=== PATIENT | female | born 1955 | race Caucasian/White ===

== ENCOUNTER 2019-11-02 18:15 | Emergency (ER) | payer OTHER ==
--- NOTE | 2019-11-02 19:41 | EDM.PDOC ---
ED HPI GENERAL MEDICAL PROBLEM - General Chief Complaint: Laceration Stated Complaint: FINGERS LEFT HAND, LITTLE ON THE RIGHT CUT Time Seen by Provider: 11/02/19 19:30 Source of Information: Reports: Patient History Limitations: Reports: No Limitations - History of Present Illness INITIAL COMMENTS - FREE TEXT/NARRATIVE: This 64 yo female patient reports to the ED with injuries to her left and (3rd and 4th fingers), right hand 3rd finger and forehead. The patient reports she was lifting a concrete bench when the top came off, then she tripped on the remaining piece. The patient reports she fell during the process. The patient reports no loss of consciousness before, during or after the incident. The patient is not on any blood thinners. Onset: Today Onset Date: 11/02/19 Onset Time: 18:00 Duration: Constant Location: Reports: Head, Upper Extremity, Left, Upper Extremity, Right Quality: Reports: Ache, Dull Severity: Moderate Improves with: Reports: None Worsens with: Reports: None Context: Reports: Other Associated Symptoms: Reports: No Other Symptoms Left Finger-Middle Pain Score (Numeric/FACES): 5 Right Finger-Ring Pain Score (Numeric/FACES): 5 - Related Data Allergies Allergy/AdvReac Type Severity Reaction Status Date / Time No Known Allergies Allergy Verified 11/02/19 19:13 Home Meds: Home Meds Escitalopram [Lexapro] 10 mg PO DAILY 11/02/19 [History] Levothyroxine [Synthroid] 88 mcg PO ACBREAKFAST 11/02/19 [History] atorvaSTATin Calcium [Lipitor] 10 mg PO DAILY 11/02/19 [History] lisinopriL [Lisinopril] 20 mg PO DAILY 11/02/19 [History] predniSONE [Prednisone] 10 mg PO DAILY 11/02/19 [History] Past Medical History Cardiovascular History: Reports: High Cholesterol, Hypertension Other Endocrine/Metabolic History: Adrenal insuffiency - Past Surgical History Other Oncologic Surgeries/Procedures: stage 3 melanoma -2014 Social & Family History - Tobacco Use Smoking Status *Q: Never Smoker - Caffeine Use Caffeine Use: Reports: Soda - Alcohol Use Date of Last Drink: 11/02/19 - Recreational Drug Use Recreational Drug Use: No ED ROS GENERAL - Review of Systems Review Of Systems: Comprehensive ROS is negative, except as noted in HPI. ED EXAM, SKIN/RASH Exam: See Below Exam Limited By: No Limitations General Appearance: Alert, WD/WN, Mild Distress Eye Exam: Bilateral Eye: EOMI, Normal Inspection, PERRL Ears: Normal External Exam, Normal Canal, Hearing Grossly Normal, Normal TMs Nose: Normal Inspection, Normal Mucosa, No Blood Throat/Mouth: Normal Inspection, Normal Lips, Normal Teeth, Normal Gums, Normal Oropharynx, Normal Voice, No Airway Compromise Head: Atraumatic, Normocephalic Neck: Normal Inspection, Supple, Non-Tender, Full Range of Motion Respiratory/Chest: No Respiratory Distress, Lungs Clear, Normal Breath Sounds, No Accessory Muscle Use, Chest Non-Tender Cardiovascular: Normal Peripheral Pulses, Regular Rate, Rhythm, No Edema, No Gallop, No JVD, No Murmur, No Rub GI/Abdominal: Normal Bowel Sounds, Soft, Non-Tender, No Organomegaly, No Distention, No Abnormal Bruit, No Mass (Female) Exam: Deferred Rectal (Female) Exam: Deferred Extremities: Arm Pain (left and right hand pain) Neurological: Alert, Oriented, CN II-XII Intact, Normal Cognition, Normal Gait, Normal Reflexes, No Motor/Sensory Deficits Psychiatric: Normal Affect, Normal Mood Skin: Wound/Incision (right 3rd finger, left 3rd and 4th fingers) Location, Skin: Head (forehead contusion), Upper Extremity, Right, Upper Extremity, Left Characteristics: Linear Associated features: Warmth, Tenderness Lymphatic: No Adenopathy ED SKIN PROCEDURES - Laceration/Wound Repair Left Digit - 4th (Ring) Appearance: Subcutaneous Distal NVT: Neuro & Vascular Intact, No Tendon Injury Anesthetic Type: Local Local Anesthesia - Lidocaine (Xylocaine): 1% Plain Local Anesthetic Volume: 4cc Skin Prep: Chlorhexidine (Hibiciens), Saline Exploration/Debridement/Repair: Wound Explored, In a Bloodless Field, Foreign Material Removed Closed with: Sutures Lac/Wound length In cm: 2.5 Suture Size: 4-0 # of Sutures: 9 Suture Type: Prolene, Interrupted, Simple Sterile Dressing Applied: Nurse Tetanus Status Addressed: Yes Complications: Yes Complication Description: Underlying Tuft fracture Left Distal Digit - 3rd (Middle) Appearance: Subcutaneous Distal NVT: Neuro & Vascular Intact Anesthetic Type: Local Local Anesthesia - Lidocaine (Xylocaine): 1% Plain Skin Prep: Chlorhexidine (Hibiciens), Saline Exploration/Debridement/Repair: Wound Explored, Foreign Material Removed Closed with: Sutures Lac/Wound length In cm: 2.5 Suture Size: 4-0 # of Sutures: 10 Suture Type: Prolene, Interrupted, Simple Drain Placement: No Sterile Dressing Applied: Nurse Tetanus Status Addressed: Yes Complications: Yes Complication Description: Underlying Tuft fracture Course - Vital Signs Last Recorded V/S: Last Vital Signs Temp 36.4 C 11/02/19 18:58 Pulse 70 11/02/19 18:58 Resp 19 11/02/19 18:58 BP 144/85 H 11/02/19 18:58 Pulse Ox 99 11/02/19 18:58 - Orders/Labs/Meds Meds: Medications Discontinued Medications Generic Name Dose Route Start Last Admin Trade Name Elijah PRN Reason Stop Dose Admin Bacitracin 1 dose 11/02/19 20:26 11/02/19 20:35 Bacitracin Oint 1 Gm TOP 11/02/19 20:27 1 dose ONETIME ONE Administration Lidocaine HCl 30 ml 11/02/19 20:26 11/02/19 20:35 Xylocaine-Mpf 1% INJECT 11/02/19 20:27 30 ml ONETIME ONE Administration Departure - Departure Time of Disposition: 21:45 Disposition: Home, Self-Care 01 Condition: Fair Clinical Impression: Closed fracture of tuft of distal phalanx of finger Laceration of finger of left hand without damage to nail Qualifiers: Encounter type: initial encounter Finger: middle finger Foreign body presence: with foreign body Qualified Code(s): S61.223A - Laceration with foreign body of left middle finger without damage to nail, initial encounter Laceration of left ring finger Qualifiers: Encounter type: initial encounter Damage to nail status: without damage Foreign body presence: with foreign body Qualified Code(s): S61.225A - Laceration with foreign body of left ring finger without damage to nail, initial encounter - Discharge Information *PRESCRIPTION DRUG MONITORING PROGRAM REVIEWED*: Not Applicable *COPY OF PRESCRIPTION DRUG MONITORING REPORT IN PATIENT GABY: Not Applicable Instructions: Sutures, Marlon, or Adhesive Wound Closure, [id number], Finger Fracture, Adult, [id number], Laceration Care, Adult, [id number] Forms: ED Department Discharge Care Plan Goals: The patient was advised of the examination and x-ray results during the visit. The laceration margins were well approximated during the visit. The patient should keep the area clean and dry over the next 24 hours. The patient should have the sutures removed in about 14 days. The patient was discharged with a script for Keflex (500 mg) #30 to take 1 by mouth 3 times per day for 10 days. An orthopedic consult with Dr. Louis ([facility] in [place]) was done during the visit. Dr. Louis advised to clean wound well, suture wound and follow-up with her primary care facility to monitor for infection. If the patient has any additional symptoms or concerns, the patient should either return to the emergency department or follow-up with her primary care facility. Sepsis Event Note (ED) - Evaluation Sepsis Screening Result: No Definite Risk - Focused Exam Vital Signs: Vital Signs Temp Pulse Resp BP Pulse Ox 11/02/19 18:58 36.4 C 70 19 144/85 H 99
--- NOTE | 2019-11-02 20:20 | CR ---
PROCEDURE INFORMATION: Exam: XR Left Finger(s) Exam date and time: 11/02/2019 7:51 PM Age: 64 years old Clinical indication: Injury or trauma; Injury history: Crush injury; Initial encounter; Wound; Left; Middle finger and ring finger; Additional info: Laceration to left 3rd and 4th fingers TECHNIQUE: Imaging protocol: XR Left fingers. Views: Minimum 2 views. COMPARISON: No relevant prior studies available. FINDINGS: Bones/joints: Comminuted tuft fractures of 3rd and 4th digits with 4 mm maximum displacement. Soft tissues: Normal. IMPRESSION: Comminuted tuft fractures of 3rd and 4th digits with 4 mm maximum displacement.
[2019-11-02] MEDS ORDERED: Lidocaine 1% 30 ML SDV INJECT ONE (20:26)
[2019-11-02] MEDS ORDERED: Bacitracin Oint 1 GM U/D Packet TOP ONE (20:26)
[2019-11-02] MEDS ORDERED: Diphtheria,Pertussis(Acell),Tetanus Vaccine 0.5 ML SDV IM ONE (21:41)
== END 2019-11-02 22:14 | disposition home or self-care (01) ==
LOC: DL.ED 18:15
DX: S62.633A Displaced fracture of distal phalanx of left middle finger, initial encounter for closed fracture (principal); S62.635A Displaced fracture of distal phalanx of left ring finger, initial encounter for closed fracture; S61.223A Laceration with foreign body of left middle finger without damage to nail, initial encounter; S61.225A Laceration with foreign body of left ring finger without damage to nail, initial encounter; E78.00 Pure hypercholesterolemia, unspecified; I10 Essential (primary) hypertension; Z23 Encounter for immunization; Z79.899 Other long term (current) drug therapy; W01.0XXA Fall on same level from slipping, tripping and stumbling without subsequent striking against object, initial encounter
CPT/HCPCS: 12042; 73140; 90471; 90715; 99283; J2001